=== PATIENT | female | born 1945 | race Caucasian/White ===

== ENCOUNTER 2017-12-26 18:08 | Inpatient (IN) | payer MEDICARE ==
[~2017-12-26] VITALS: Ht 157.5 cm; Wt 79.1 kg
--- NOTE | ~2017-12-26 | OP ---
PATIENT NAME: WES WHITNEY MEDICAL RECORD: [id number] :49 LOCATION:D.M2 D.2116 ADMISSION DATE:12/27/17 SURGEON: ROSALIE FREEDMAN MD DATE OF OPERATION: 12/28/2017 PTCA stent report to LAD. For angiography report, please see report dictated yesterday. DESCRIPTION OF PROCEDURE: After 6-Sinhala sheath placed in left femoral artery, a XB LAD guide catheter provided good guide catheter support followed by 300 cm Whisper wire placed across greater than 90% stenosis in LAD down distal portion of vessel. Pre-deployment balloon used was a 2.5 x 15 mm [place]. Stent deployed was a 2.5 x 30 mm Resolute drug-eluting stent up to 14 atmospheres for 45 seconds. Final injection shows excellent resolution of 90+ percent stenosis, no significant residual. MISAEL flow was 3 throughout the procedure. Heparin was used during the case. Sheath was closed with ExoSeal device. TRANSINT:[id number] Voice Confirmation ID: [id number] DOCUMENT ID: [id number] ROSALIE FREEDMAN MD at 1155 CC: [id number] DICTATION DATE: 12/28/17 1454 BREAKER UP: 12/28/17 1525 DIS IN 12/28/17 [facility] [address] [place] [address]
--- NOTE | ~2017-12-26 | HEMODYNAMI ---
PATIENT:WES WHITNEY MEDICAL RECORD: [id number] : 49 [id number] ADMISSION DATE: 12/26/17 Generatedon:12/27/201710:20 Patient name: WES WHITNEY Patient #: [id number] SSN: : 1945 Date of study: 12/27/2017 Page: Of Hemodynamic Procedure Report Patient Data Patient Demographics Procedure consent was obtained First Name: WES Gender: Female Last Name: CHELO : 1945 Middle Initial: TAMIKO Age: 72 year(s) Patient #: [id number] Race: Unknown Additional ID: [id number] Contact details [address]: [address] [place] [address] State: [place] City: [place] Zip code: [address] Past Medical History Allergies Allergen Reaction Date Comments Reported TA inhibitors 12/27/2017 Admission Admission Data Admission Date: 12/26/2017 Admission Time: 18:08 Room #: D.2116 Lab Results Lab Result Date: 12/27/2017 Lab Result Time: 0:00 Biochemistry Name Units Result Min Max BUN mg/dl 12 --(-*--)-- 7 18 Creatinine mg/dl 1 --(--*-)-- 0.6 1.3 CBC Name Units Result Min Max Hemoglobin g/dl 12.7 -*(----)-- 13.5 17.5 Procedure Procedure Types Cath Procedure Diagnostic Procedure LHC LHC w/Coronaries Sedation Charges Moderate Sedation up to 30 minutes PCI Procedure Coronary Stent Coronary Stent Initial PTCA PTCA Additional Procedure Description Procedure Date Procedure Date: 12/27/2017 Procedure Start Time: 9:45 Procedure End Time: 10:16 Procedure Staff Name Function Kaiser Sheriff MD Performing Physician Azeb Monson RT Scrub Bere Valencia RT Monitor Robinson Castrejon RN Nurse Indication Angina Procedure Data Cath Procedure Fluoroscopy Diagnostic fluoroscopy Total fluoroscopy Time: 7.5 time: 7.5 min min Diagnostic fluoroscopy Total fluoroscopy dose: dose: 1038 mGy 1038 mGy Contrast Material Contrast Material Type Amount (ml) Isovue 300 120 Entry Location Entry Primary Successful Side Size Upsize Upsize Entry Closure Freitas ccessful Closure Location (Fr) 1 (Fr) 2 (Fr) Remarks Device Remarks Radial Right 6 Fr Mechanical artery Short Compression Femoral Right 6 Fr Exoseal artery Short Estimated blood loss: 5 ml Diagnostic catheters Device Type Used For End Catheter Placement DIAGNOSTIC Holton 110cm 5 Multi-vessel Fr catheter ([id number]) Angiography DIAGNOSTIC Pigtail 5Fr LV Angiography catheter ([id number]) Procedure Complications No complications Procedure Medications Medication Administration Route Dosage Plavix P.O. 600 mg Oxygen etCO2 Nasal cannula 2 l/min Heparin Flush Bag added to field 2 bags (1000units/500ml NS) 0.9% NaCl I.V. 100 ml/hr Radial Cocktail added to field 1 syringe (Verapomil 2mg/Nitro 400mcg/Heparin 1500units) Fentanyl I.V. 50 mcg Versed I.V. 1 mg Lopressor I.V. 5 mg Radial Cocktail I.A. 1 syringe (Verapomil 2mg/Nitro 400mcg/Heparin 1500units) Fentanyl I.V. 50 mcg Versed I.V. 1 mg Heparin Bolus I.V. 4000 units Integrilin (Bolus I.V. 6.8 ml 2mg/ml) Integrilin (Bolus wasted 3.2 ml 2mg/ml) Hemodynamics Rest HGB: 12.7 (g/dl) Heart Rate: 112 (bpm) Pressure Samples Time Site Value (mmHg) Purpose Heart Use Rate(bpm) 9:56 LV 137/31,30 Snapshot 96 Gradients Valve Time Site Site Mean SEP/DFP Peak To Heart Use 1 2 (mmHg) (sec/min) Peak Rate (mmHg) (bpm) Aortic 9:56 LV AO 95 Snapshots Pre Cath Intra NCS Post Cath Vital Signs Time Heart Resp SPO2 etCO2 NIBP (mmHg) Rhythm Pain Sedation Rate (ipm) (%) (mmHg) Status Level (bpm) 9:36:06 111 18 98 0 197/100(146) NSR 0 (11) 10(A) , No pain 9:41:05 112 16 100 0 186/100(138) NSR 0 (11) 10(A) , No pain 9:46:00 99 16 100 0 162/87(117) NSR 0 (11) 9(A) , No pain 9:50:51 95 17 97 0 138/78(115) NSR 0 (11) 9(A) , No pain 9:55:37 95 18 99 0 144/73(119) NSR 0 (11) 9(A) , No pain 10:00:24 93 16 97 0 129/76(97) NSR 0 (11) 9(A) , No pain 10:05:09 92 16 96 0 140/75(106) NSR 0 (11) 9(A) , No pain 10:09:54 95 16 97 0 131/84(102) NSR 0 (11) 9(A) , No pain 10:14:34 95 16 99 0 148/87(118) NSR 0 (11) 9(A) , No pain Medications Time Medication Route Dose Verified Delivered Reason Not es Effectiveness by by 9:34:30 Plavix P.O. 600 mg [facility] for [facility] Sony Castrejon RN antiplatelet MD therapy 9:41:03 Oxygen etCO2 2 l/min [facility] Per physician Nasal [facility] Sony Castrejon RN cannula 9:41:12 Heparin Flush added 2 bags [facility] used for Bag to [facility] Sony Castrejon RN procedure (1000units/500ml field LUCIO NS) 9:41:20 0.9% NaCl I.V. 100 [facility] Per physician ml/hr [facility] Sony Castrejon RN, MD 9:41:26 Fentanyl I.V. 50 mcg [facility] for sedation [facility] Sony Castrejon RN, MD 9:41:34 Versed I.V. 1 mg [facility] for sedation [facility] Sony Castrejon RN, MD 9:41:39 Radial Cocktail added 1 [facility] used for (Verapomil to syringe [facility] Sony Castrejon helicopter pilot 2mg/Nitro field LUCIO 400mcg/Heparin 1500units) 9:47:02 Lopressor I.V. 5 mg [facility] Per physician [facility] Sony Castrejon RN, MD 9:49:26 Radial Cocktail I.A. 1 [facility] for (Verapomil syringe St Sony Sheriff vasodilation 2mg/Julia LUCIO MD 400mcg/Heparin 1500units) 9:49:33 Fentanyl I.V. 50 mcg [facility] for sedation [facility] Sony Castrejon RN, MD 9:49:37 Versed I.V. 1 mg [facility] for sedation [facility] Sony Castrjeon RN, MD 9:57:33 Heparin Bolus I.V. 4000 [facility] for units [facility] Sony Castrejon RN anticoagulation 9:57:58 Integrilin I.V. 6.8 ml [facility] for (Bolus 2mg/ml) [facility] Sony Castrejon RN antiplatelet MD therapy 10:01:20 Integrilin wasted 3.2 ml [facility] for (Bolus 2mg/ml) [facility] Sony Castrejon RN antiplatelet MD therapy Procedure Log Time Note 9::20 Time tracking: Regular hours 9:05:24 Plan of Care:Hemodynamics will remain stable., Cardiac rhythm will remain stable., Comfort level will be maintained., Respiratory function will remain adequate., Patient/ family verbilizes understanding of procedure., Procedure tolerated without complication., Recovers from procedure without complications.. 9:05:26 Signed procedure consent form obtained from patient. 9:08:23 Patient allergic to TA inhibitors 9:08:45 Lab Result : BUN 12 mg/dl 9:08:45 Lab Result : Creatinine 1 mg/dl 9:08:45 Lab Result : Hemoglobin 12.7 g/dl 9:10:51 Azeb Monson RT(R) sent for patient. Start room use. 9:33:29 Patient received from Med II to CCL 1 Alert and oriented. Tansferred to table in Supine position. 9:33:31 Warm blankets applied, and will hugger turned on for patient comfort. 9:33:32 Correct patient and procedure confirmed by team. 9:33:33 ECG and BP/O2 sat monitors applied to patient. 9:34:04 Vital chart was started 9:34:30 Plavix 600 mg P.O. was administered by Robinson Castrejon RN; for antiplatelet therapy; 9:36:05 Baseline sample Acquired. 9:36:12 Rhythm: sinus tachycardia 9:36:16 Full Disclosure recording started 9:36:46 H&P Date Dictated: 12/27/2017 Within 30 days and on chart., New H&P dictated by physician.. 9:36:49 Pre-procedure instructions explained to patient. 9:36:50 Pre-op teaching completed and patient verbalized understanding. 9:36:58 Family in patients room. 9:37:04 Patient NPO since Midnight. 9:37:15 Is the patient allergic to Iodine/contrast media? No. 9:37:28 Is patient on blood thinner?Yes 9:37:33 ACC The patient was administered the following blood thiners within the last 24 hours: ACCPlavix 9:37:36 Patient diabetic? Yes. 9:37:50 If diabetic: On Metformin? Yes 9:38:15 LAST DOSE 12/25/17 9:38:32 ----Pre-sedation anethsthesia assessment.---- 9:38:36 Previous problem with sedation/anesthesia? No ? 9:38:38 Snore? Yes 9:38:39 Sleep apnea? No 9:38:41 Deviated septum? No 9:38:42 Opens mouth fully? Yes 9:38:44 Sticks out tongue? Yes 9:39:06 Airway obstruction? No ? 9:39:15 Dentures? Yes OUT 9:39:22 Pre procedure: right dorsailis pedis pulse 2+ Normal; easily identifiable; not easily obliterated 9:39:36 Patient pain scale 0/10 ?. 9:40:02 IV patent on arrival in left wrist with 0.9% NaCl at KVO. 9:40:23 Lab results completed and on chart. 9:40:28 Right Radial & Right Groin area was prepped with chlora-prep and draped in sterile fashion 9:40:29 Alarms reviewed by R. N. 9:40:31 Sharps counted by scrub and verified by R.N. 9:40:34 Physician arrived 9:40:34 --------ALL STOP TIME OUT------ 9:40:35 Final Timeout: patient, procedure, and site verified with staff and physician. All members of the team are in agreement. 9:40:38 Right Radial & Right Groin site verified by team. 9:40:41 Physical assessment completed. ASA score P 2 - A patient with mild systemic disease as per Kaiser Sheriff MD. 9:40:46 Sedation plan: IV Moderate Sedation Medication:Versed, Fentanyl 9:41:02 Indication : Angina 9:41:03 Oxygen 2 l/min etCO2 Nasal cannula was administered by Robinson Castrejon RN; Per physician; 9:41:09 Use device set Radial Dx or PCI 9:41:10 ACIST Syringe (19829) opened to sterile field. 9:41:10 Medline Cath Pack ([id number]) opened to sterile field. 9:41:11 Bag Decanter () opened to sterile field. 9:41:12 Heparin Flush Bag (1000units/500ml NS) 2 bags added to field was administered by Robinson Castrejon RN; used for procedure; 9:41:12 DIAGNOSTIC WIRE .035 260cm J wire (948160) opened to sterile field. 9:41:13 ACIST Hand Control (26452) opened to sterile field. 9:41:14 ACIST Manifold (56042) opened to sterile field. 9:41:14 Tegaderm 4 x 4 (1626W) opened to sterile field. 9:41:15 MBrace Wrist Support ([id number]) opened to sterile field. 9:41:20 0.9% NaCl 100 ml/hr I.V. was administered by Robinson Castrejon RN; Per physician; 9:41:26 Fentanyl 50 mcg I.V. was administered by Robinson Castrejon RN; for sedation; 9:41:34 Versed 1 mg I.V. was administered by Robinson Castrejon RN; for sedation; 9:41:35 SHEATH 6Fr Prelude Radial ([id number]) opened to sterile field. 9:41:39 Radial Cocktail (Verapomil 2mg/Nitro 400mcg/Heparin 1500units) 1 syringe added to field was administered by Robinson Castrejon RN; used for procedure; 9:45:11 Procedure started. 9:45:16 Local anesthetic to right radial artery with Lidocaine 2% by Kaiser Sheriff MD.INITIAL ACCESS ONLY 9:45:26 A 6 Fr Short sheath was inserted into the Right Radial artery 9:45:43 A DIAGNOSTIC Holton 110cm 5 Fr catheter (231255) was advanced over the wire and used for Multi-vessel Angiography. 9:47:02 Lopressor 5 mg I.V. was administered by Robinson Castrejon RN; Per physician; 9:47:54 RCA angiography performed. 9:48:14 LCA angiography performed. 9:49:26 Radial Cocktail (Verapomil 2mg/Nitro 400mcg/Heparin 1500units) 1 syringe I.A. was administered by Kaiser Sheriff MD; for vasodilation; 9:49:33 Fentanyl 50 mcg I.V. was administered by Robinson Castrejon RN; for sedation; 9:49:37 Versed 1 mg I.V. was administered by Robinson Castrejon RN; for sedation; 9:51:33 Catheter removed. 9:53:12 Proceeding to intervention. 9:53:16 Local anesthetic to right femoral artery with Lidocaine 2% by Kaiser Sheriff MD.ADDITIONAL ACCESS 9:53:25 A 6 Fr Short sheath was inserted into the Right Femoral artery 9:53:54 BMW 300cm [place] 2 J wire ([id number]) opened to sterile field. 9:54:10 INFLATOR Merit BasixCompak (TL4810) opened to sterile field. 9:55:08 A DIAGNOSTIC Pigtail 5Fr catheter (571261I) was advanced over the wire and used for LV Angiography. 9:56:07 LV hemodynamics recorded. 9:56:08 LV gram done using MCKEON 9:56:10 Injector settings: Ml/sec: 5, Volume: 15, 9:56:21 EF : 55 % 9:56:26 Catheter removed. 9:56:43 GUIDE 6FR EBU 3.5 catheter ([id number]) opened to sterile field. 9:56:53 6 Fr EBU 3.5 guide catheter was inserted over the wire 9:56:57 BMW wire advanced. 9:57:33 Heparin Bolus 4000 units I.V. was administered by Robinson Castrejon RN; for anticoagulation; 9:57:58 Integrilin (Bolus 2mg/ml) 6.8 ml I.V. was administered by Robinson Castrejon RN; for antiplatelet therapy; 10:01:20 Integrilin (Bolus 2mg/ml) 3.2 ml wasted was administered by Robinson Castrejon RN; for antiplatelet therapy; 10:02:12 Inflation number: 1 A EUPHORA 3.0 x 15 Balloon ([id number]) was prepped and advanced across the Mid CX, then inflated to 10 AMY for 0:30 (min:sec). 10:03:32 Balloon removed over the wire. 10:05:36 Inflation Number: 2 A RADHA OTW 3.0 x 15 stent ([id number]) was prepped and advanced across the Mid CX. The stent was deployed at 14 AMY for 0:30 (min:sec). 10:08:15 Stent catheter was removed intact over wire. 10:10:56 Inflation number: 1 A EUPHORA 2.5 x 20 Balloon ([id number]) was prepped and advanced across the 1st Ob Doreen, then inflated to 10 AMY for 0:30 (min:sec). 10:11:42 Inflation number: 2 The EUPHORA 2.5 x 20 Balloon ([id number]) was reinflated across the 1st Ob Doreen, to 10 AMY for 0:30 (min:sec). 10:12:01 Balloon removed over the wire. 10:12:02 Wire removed. 10:12:03 Guide catheter removed. 10:12:06 TR BAND Standard ([id number]) opened to sterile field. 10:12:16 EXOSEAL 6Fr (EX600) opened to sterile field. 10:12:31 Sheath removed intact; hemostasis achieved with Mechanical Compression to the Right Radial artery. 10:12:37 Sheath removed intact; hemostasis achieved with Exoseal to the Right Femoral artery. 10:12:40 Procedure ended.(Physican Out) 10:13:24 Fluoroscopy time 07.50 minutes. 10:13:29 Fluoroscopy dose: 1038 mGy 10:13:29 Flurop Dose total: 1038 10:14:39 Contrast amount:Isovue 300 120ml. 10:14:42 Sharps counted by scrub and verified by R.N. 10:14:44 TR band inflated with 10cc of air. 10:14:46 Insertion/operative site no bleeding no hematoma. 10:14:55 Post-op/insertion site Right Femoral artery dressed using a 4 x 4 and Tegaderm. 10:15:00 Post right radial artery:stable 10:15:01 Post Procedure Pulses reassessed and unchanged 10:15:04 Post procedure rhythm: unchanged. 10:15:07 Estimated blood loss: 5 ml 10:15:09 Post procedure instruction explained to patient.Patient verbalizes understanding. 10:15:10 Patient needs reinforcement of post procedure teaching. 10:15:56 Procedure type changed to Cath procedure, Diagnostic procedure, LHC, LHC w/Coronaries, Sedation Charges, Moderate Sedation up to 30 minutes, PCI procedure, Coronary Stent, Coronary Stent Initial, PTCA, PTCA Additional 10:15:57 Procedure and supply charges have been captured, reviewed, submitted and are correct. 10:16:01 Procedure Complication : No complications 10:16:03 Vital chart was stopped 10:16:04 See physician's report for complete and final results. 10:16:[address] [facility]. 10:16:26 Patient transfered to [facility] with Stretcher. 10:16:28 Procedure ended. 10:16:28 Full Disclosure recording stopped 10:16:35 ACC-PCI Only Patient was given prescriptions, or instructed by Kaiser Sheriff MD to start/continue the following medications upon discharge: Plavix 10:16:36 End room use (Document Last) Intervention Summary Intervention Notes Time ActionType Lesion and Equipment Action# Pressure Duration Attributes Used 10:02:12 Inflate Mid CX EUPHORA 3.0 x 1 10 00:30 balloon 15 Balloon ([id number]) 10:05:36 Place stent Mid CX RADHA OTW 3.0 2 14 00:30 x 15 stent ([id number]) 10:10:56 Inflate 1st Ob Doreen EUPHORA 2.5 x 1 10 00:30 balloon 20 Balloon ([id number]) 10:11:42 Reinflate 1st Ob Doreen EUPHORA 2.5 x 2 10 00:30 balloon 20 Balloon ([id number]) Device Usage Item Name Manufacture Quantity Catalog Number Hospital Part Current M inimal Lot# / Charge Number Stock Stock Serial# Code ACIST Syringe Acist 1 54075 989506 738361 408152 2 0 (30320) Medical [employer] Inc Medline Cath Cardinal 1 [id number] 886906 34114 863288 5 Pack [facility] ([id number]) Bag Decanter Microtek 1 677782 42984 415307 5 () Medical Inc. DIAGNOSTIC WIRE St Andrey 1 672563 238215 170947 115042 3 0 .035 260cm J wire (694548) ACIST Hand Acist 1 56582 117401 840952 033181 5 Control (37728) [employer] Inc ACIST Manifold Acist 1 29850 569239 748984 747115 5 (95345) [employer] Systems Inc Tegaderm 4 x 4 3M 1 1626W 330383 989629 921723 5 (1626W) MBrace Wrist Advanced 1 140-0250-00 991983 68470 382253 5 Support Vascular ([id number]) Dynamics SHEATH 6Fr Merit 1 [id number] 176153 153514 508527 5 Prelude Radial Medical ([id number]) DIAGNOSTIC Terumo 1 40-5423 401169 291261 279298 5 Holton 110cm 5 Fr catheter (577815) BMW 300cm Flynn 1 [id number] 640903 498562 088684 5 [place] 2 J Vascular wire (0444210F) INFLATOR Merit Merit 1 YJ1766 552074 702607 313807 1 5 [facility] (RZ[facility]82) DIAGNOSTIC Cardinal 1 [id number] 914301 719526 845138 5 Pigtail 5Fr Health catheter (240063O) GUIDE 6FR EBU Medtronic 1 [id number] 132982 34237 704021 3 3.5 catheter (JV3VTC88) EUPHORA 3.0 x Medtronic 1 [id number] 427351 547115 372188 5 [id number] 15 Balloon ([id number]) RADHA OTW 3.0 x Medtronic 1 [id number] 384015 945102 989354 5 [id number] 15 stent ([id number]) EUPHORA 2.5 x Medtronic 1 [id number] 420432 078117 996429 5 [id number] 20 Balloon ([id number]) TR BAND Terumo 1 [id number] 411867 314512 828499 4 0 Standard ([id number]) EXOSEAL 6Fr Cardinal 1 EX600 408609 766709 463829 1 0 (EX600) Health Signature Audit [place] Stage Time Signature Unsigned Intra-Procedure 12/27/2017 Bere Valencia 10:20:48 AM RT(R) Signatures Monitor : Bere Valencia RT Signature : Date : Time : [facility] [address] [facility] [place] [address]
--- NOTE | ~2017-12-26 | OP ---
PATIENT NAME: WES WHITNEY MEDICAL RECORD: [id number] :49 LOCATION:D.M2 D.2116 ADMISSION DATE:12/27/17 SURGEON: ROSALIE FREEDMAN MD DATE OF OPERATION: 12/27/2017 PROCEDURE: Left heart catheterization, selective coronary angiography, right radial approach. CATHETERS: A 5-Nepalese sheath, 5/4 left and right Duane, 5/4 pig. The procedure was well tolerated. We proceeded immediately to PTCA stenting of circumflex. FINDINGS: Left ventriculography in 30-degree MCKEON view shows inferior basilar hypokinesis. Overall, LV function appears to be preserved at 50% or better. CORONARY ANATOMY: LEFT MAIN: Left main has about 30% stenosis. LAD: Has a long diffuse stenosis of 80%. CIRCUMFLEX: Circumflex has severe diffuse disease of the distal PDA. It is a left dominant system. There is a larger OM2 distally and OM1 that has severe diffuse stenosis. PLAN: Intervention in a staged fashion of the circumflex, OM systems, and LAD. After we placed a 6-Nepalese sheath in the right femoral artery, EBU guide catheter provided good guide catheter support followed by 300 cm Whisper wire. We addressed the circumflex OM2 initially. Pre-deployment balloon was a 3.0 x 15 mm [place] up to 12 atmospheres. Next, a 3.0 x 15 Resolute drug-eluting stent was inflated up to 14 atmospheres. Next, the smaller OM1 with diffuse disease was addressed with a 2.5 x 20 mm [place] balloon up to 12 atmospheres. It shows excellent resolution of diffuse 80% stenosis in OM1, excellent resolution of 90+ subtotal stenosis in OM2/true circ. No significant residual. MISAEL flow was 3 throughout the procedure. Plavix was loaded in the lab. Intervention of LAD at a later date. TRANSINT:[id number] Voice Confirmation ID: [id number] DOCUMENT ID: [id number] ROSALIE FREEDMAN MD at 1155 CC: [id number] DICTATION DATE: 12/27/17 1019 BUSINESS SERVICES REPRESENTATIVE: 12/27/17 1218 DIS IN 12/28/17 [place] [address]
--- NOTE | ~2017-12-26 | HEMODYNAMI ---
PATIENT:WES WHITNEY MEDICAL RECORD: [id number] : 49 [id number] ADMISSION DATE: 12/27/17 Generatedon:12/28/201714:48 Patient name: WES WHITNEY Patient #: [id number] SSN: : 1945 Date of study: 12/28/2017 Page: Of Hemodynamic Procedure Report Patient Data Patient Demographics Procedure consent was obtained First Name: WES Gender: Female Last Name: CHELO : 1945 Middle Initial: TAMIKO Age: 72 year(s) Patient #: [id number] Race: Unknown Additional ID: [id number] Contact details [address]: [address] [place] [address] State: [place] City: [place] Zip code: [address] Past Medical History Allergies Allergen Reaction Date Comments Reported TA inhibitors 12/27/2017 Admission Admission Data Admission Date: 12/27/2017 Admission Time: 14:56 Room #: D2116 Lab Results Lab Result Date: 12/27/2017 Lab Result Time: 0:00 Biochemistry Name Units Result Min Max BUN mg/dl 12 --(-*--)-- 7 18 Creatinine mg/dl 1 --(--*-)-- 0.6 1.3 CBC Name Units Result Min Max Hemoglobin g/dl 12.7 -*(----)-- 13.5 17.5 Procedure Procedure Types Cath Procedure Diagnostic Procedure Sedation Charges Moderate Sedation up to 15 minutes PCI Procedure Coronary Stent Coronary Stent Initial Procedure Description Procedure Date Procedure Date: 12/28/2017 Procedure Start Time: 14:27 Procedure End Time: 14:47 Procedure Staff Name Function Kaiser Sheriff MD Performing Physician Lyssa Lewis RT Monitor Stepan Roque RT Scrub Laisha Falk RN Nurse Procedure Data Cath Procedure Fluoroscopy Diagnostic fluoroscopy Total fluoroscopy Time: 5.1 time: 5.1 min min Diagnostic fluoroscopy Total fluoroscopy dose: dose: 419.62 mGy 419.62 mGy Contrast Material Contrast Material Type Amount (ml) Isovue 300 79 Entry Location Entry Primary Successful Side Size Upsize Upsize Entry Closure Succes sful Closure Location (Fr) 1 (Fr) 2 (Fr) Remarks Device Remarks Femoral Left 6 Fr Exoseal artery Short Estimated blood loss: 10 ml Procedure Complications No complications Procedure Medications Medication Administration Route Dosage Oxygen NC 2 l/min Heparin Bolus I.V. 4000 units Lidocaine 2% added to field 20 Heparin Flush Bag added to field 2 bags (1000units/500ml NS) Versed I.V. 1 mg Fentanyl I.V. 50 mcg Versed I.V. 1 mg Fentanyl I.V. 50 mcg Hemodynamics Rest Heart Rate: 88 (bpm) Snapshots Pre Cath Intra NCS Post Cath Vital Signs Time Heart Resp SPO2 NIBP (mmHg) Rhythm Pain Sedation Rate (ipm) (%) Status Level (bpm) 14:13:59 89 16 98 176/82(112) NSR 0 (11) 10(A) , No pain 14:18:37 87 12 98 148/80(104) NSR 0 (11) 10(A) , No pain 14:23:18 88 15 99 141/70(105) NSR 0 (11) 10(A) , No pain 14:27:55 90 18 100 136/71(97) NSR 0 (11) 9(A) , No pain 14:32:31 94 17 99 130/69(100) NSR 0 (11) 9(A) , No pain 14:37:01 100 14 99 142/77(98) NSR 0 (11) 9(A) , No pain 14:41:34 103 15 99 151/84(112) NSR 0 (11) 9(A) , No pain 14:46:16 96 17 99 160/69(113) NSR 0 (11) 10(A) , No pain Medications Time Medication Route Dose Verified Delivered Reason Notes Effectiveness by by 14:14:14 Lidocaine 2% added 20ml Kaiser Saab for local to vial [facility] anesthetic field MD LUCIO 14:14:20 Heparin Flush added 2 Kaiser aSab used for Bag to bags [facility] John procedure (1000units/500ml field MD LUCIO NS) 14:14:54 Oxygen NC 2 Robinson Bowers used for l/min aCsh Castrejon industrial maintenance electrician RN 14:20:27 Versed I.V. 1 mg Kaiser Interiano for sedation St Sony Falk RN, MD 14:20:33 Fentanyl I.V. 50 Kaiser Adhikariie for sedation [facility] Sony Falk RN, MD 14:29:57 Heparin Bolus I.V. 4000 Robinson Robinson for verifi ed units Cash Castrejon RN anticoagulation with STEFANI quach 14:30:37 Versed I.V. 1 mg Kaiser Adhikariie for sedation St Sony Falk RN, MD 14:30:41 Fentanyl I.V. 50 Kaiser Interiano for sedation [facility] St Sony Falk RN, MD Procedure Log Time Note 13:48:10 Time tracking: Regular hours 13:48:30 Plan of Care:Hemodynamics will remain stable., Cardiac rhythm will remain stable., Comfort level will be maintained., Respiratory function will remain adequate., Patient/ family verbilizes understanding of procedure., Procedure tolerated without complication., Recovers from procedure without complications.. 13:48:50 Use device set CATH PACK 13:48:51 ACIST Syringe (05421) opened to sterile field. 13:48:52 ACIST Hand Control (58775) opened to sterile field. 13:48:52 ACIST Manifold (05862) opened to sterile field. 13:48:53 Medline Cath Pack ([id number]) opened to sterile field. 13:48:53 Bag Decanter (2002S) opened to sterile field. 13:48:54 DIAGNOSTIC WIRE .035 260cm J wire (783955) opened to sterile field. 13:49:00 PERCUTANEOUS ENTRY 19GA needle opened to sterile field. 13:49:04 Use device set MCNEAL PCI 13:49:05 INFLATOR Merit BasixCompak (OX4485) opened to sterile field. 13:49:19 SHEATH Prelude 6Fr 0.035 (QUZ-6K-97-035) opened to sterile field. 13:49:21 WHISPER 300cm guide wire ([id number]) opened to sterile field. 13:49:23 GUIDE 6FR XBLAD 3.5 catheter ([id number]) opened to sterile field. 13:49:32 Lyssa Lewis RT(R) sent for patient. Start room use. 14:09:00 Patient received from PCU to CCL 3 Alert and oriented. Tansferred to table in Supine position. 14:09:01 Warm blankets applied, and will hugger turned on for patient comfort. 14:09:02 Correct patient and procedure confirmed by team. 14:09:04 Signed procedure consent form obtained from patient. 14:09:04 ECG and BP/O2 sat monitors applied to patient. 14:09:30 H&P Date Dictated: 12/27/2017 Within 30 days and on chart.. 14:12:21 Vital chart was started 14:12:24 Rhythm: sinus rhythm 14:12:25 Full Disclosure recording started 14::26 Pre-procedure instructions explained to patient. 14:12: Pre-op teaching completed and patient verbalized understanding. 14:12:28 Family in patients room. 14:12:29 Patient NPO since Midnight. 14:12:41 Is the patient allergic to Iodine/contrast media? No. 14:12:43 Is patient on blood thinner?Yes 14:12:44 ACC The patient was administered the following blood thiners within the last 24 hours: ACCPlavix 14:12:52 Patient diabetic? Yes. 14:12:53 If diabetic: On Metformin? No 14:12:56 Previous problem with sedation/anesthesia? No ? 14:12:57 Snore? Yes 14:12:58 Sleep apnea? No 14:13:01 Deviated septum? No 14:13:02 Opens mouth fully? Yes 14:13:02 Sticks out tongue? Yes 14:13:04 Airway obstruction? No ? 14:13:06 Dentures? No ? 14:13:12 Pre procedure: left dorsailis pedis pulse 2+ Normal; easily identifiable; not easily obliterated 14:13:19 Patient pain scale 0/10 ?. 14:13:29 IV patent on arrival in right forearm with 0.9% NaCl at O. 14:13:32 Lab results completed and on chart. 14:13:36 Left groin area was prepped with chlora-prep and draped in sterile fashion 14:13:36 Alarms reviewed by R. N. 14:13:36 Sharps counted by scrub and verified by R.N. 14:14:14 Lidocaine 2% 20ml vial added to field was administered by Kaiser Sheriff MD; for local anesthetic; 14:14:20 Heparin Flush Bag (1000units/500ml NS) 2 bags added to field was administered by Kaiser Sheriff MD; used for procedure; 14:14:54 Oxygen 2 l/min NC was administered by Robinson Castrejon RN; used for procedure; 14:18:24 Baseline sample Acquired. 14:18:55 Final Timeout: patient, procedure, and site verified with staff and physician. All members of the team are in agreement. 14:18:59 Left groin site verified by team. 14:19:02 Physical assessment completed. ASA score P 2 - A patient with mild systemic disease as per Kaiser Sheriff MD. 14:19:05 Sedation plan: IV Moderate Sedation Medication:Versed, Fentanyl 14:20:27 Versed 1 mg I.V. was administered by Laisha Falk RN; for sedation; 14:20:33 Fentanyl 50 mcg I.V. was administered by Laisha Falk RN; for sedation; 14:25:39 Zero performed for pressure channel P1 14:26:56 Procedure started. 14:27:00 Local anesthetic to left femerol artery with Lidocaine 2% by Kaiser Sheriff MD.INITIAL ACCESS ONLY 14:27:47 A 6 Fr Short sheath was inserted into the Left Femoral artery 14:29:13 6 Fr XBLAD 3.5 guide catheter was inserted over the wire 14:29:57 Heparin Bolus 4000 units I.V. was administered by Robinson Castrejon RN; for anticoagulation; verified with philomena 14:30:37 Versed 1 mg I.V. was administered by Laisha Falk RN; for sedation; 14:30:41 Fentanyl 50 mcg I.V. was administered by Laisha Falk RN; for sedation; 14:34:26 WHISPER wire advanced. 14:36:10 Inflation number: 1 A EMERGE OTW 2.5 x 15 balloon ([id number]) was prepped and advanced across the Mid LAD, then inflated to 10 AMY for 0:29 (min:sec). 14:38:23 Stent catheter was removed intact over wire. 14:42:15 Inflation Number: 2 A RADHA OTW 2.5 x 30 stent ([id number]) was prepped and advanced across the Mid LAD. The stent was deployed at 14 AMY for 0:27 (min:sec). 14:42:30 Stent catheter was removed intact over wire. 14:42:49 Wire removed. 14:42:49 Guide catheter removed. 14:43:00 Sheath removed intact; hemostasis achieved with Exoseal to the Left Femoral artery. 14:43:03 Procedure ended.(Physican Out) 14:43:36 Procedure type changed to Cath procedure, Diagnostic procedure, Sedation Charges, Moderate Sedation up to 15 minutes, PCI procedure, Coronary Stent, Coronary Stent Initial 14:44:37 Fluoroscopy time 05.10 minutes. 14:44:45 Flurop Dose total: 419.62 14:44:45 Fluoroscopy dose: 419.62 mGy 14:44:48 Contrast amount:Isovue 300 79ml. 14:44:49 Sharps counted by scrub and verified by R.N. 14:44:51 Insertion/operative site no bleeding no hematoma. 14:44:54 Post-op/insertion site Left Femoral artery dressed using a 4 x 4 and Tegaderm. 14:44:58 Post left femerol artery:stable, clean and dry 14:45:00 Post Procedure Pulses reassessed and unchanged 14:45:02 Post-procedure physical assessment completed. ASA score P 2 - A patient with mild systemic disease as per Kaiser Sheriff MD. 14:45:06 Post procedure rhythm: unchanged. 14:45:12 Estimated blood loss: 10 ml 14:45:13 Post procedure instruction explained to patient.Patient verbalizes understanding. 14:45:14 Patient needs reinforcement of post procedure teaching. 14:45:18 Procedure Complication : No complications 14:45:20 See physician's report for complete and final results. 14:45:34 EXOSEAL 6Fr (EX600) opened to sterile field. 14:46:04 Tegaderm 4 x 4 (1626W) opened to sterile field. 14:46:30 Procedure and supply charges have been captured, reviewed, submitted and are correct. 14:47:11 Vital chart was stopped 14:47:20 Report given to PCU. 14:47:28 Patient transfered to PCU with Bed. 14:47:39 Procedure ended. 14:47:39 Full Disclosure recording stopped 14:47:45 End room use (Document Last) Intervention Summary Intervention Notes Time ActionType Lesion and Equipment Action# Pressure Duration Attributes Used 14:36:10 Inflate Mid LAD EMERGE OTW 1 10 00:29 balloon 2.5 x 15 balloon ([id number]) 14:42:15 Place stent Mid LAD RADHA OTW 2.5 2 14 00:27 x 30 stent ([id number]) Device Usage Item Name Manufacture Quantity Catalog Number Hospital Part Current Minimal Lot# / Charge Number Stock Stock Serial# Code ACIST Syringe Acist 1 27487 722862 433823 122301 20 (40224) Medical [employer] Inc ACIST Hand Acist 1 03906 942139 049915 786406 5 Control (36659) [employer] Inc ACIST Manifold Acist 1 86477 801999 046833 146802 5 (26819) Medical [employer] Inc Medline Cath Cardinal 1 [id number] 388736 42279 820070 5 Pack Health ([id number]) Bag Decanter Microtek 1 2001S 202782 80607 617189 5 (2001S) Medical Inc. DIAGNOSTIC WIRE St Andrey 1 122593 908708 157962 279945 30 .035 260cm J wire (908699) PERCUTANEOUS Cook Medical 1 X07206 749509 195790 5 ENTRY 19GA needle INFLATOR Merit Merit 1 RV5353 658976 388951 251973 15 BasixCompak Medical (YT5239) SHEATH Prelude Merit 1 BYD-4A-03-35 562595 2856495 062361 5 6Fr 0.035 Medical (JSH-2C-61-035) WHISPER 300cm Flynn 1 [id number] 495646 241149 355602 5 guide wire Vascular (1935582NC) GUIDE 6FR XBLAD Cardinal 1 [id number] 260650 648959 376799 10 3.5 catheter Health ([id number]) EMERGE OTW 2.5 Peck 1 [id number] 808500 796610 790569 5 [id number] x 15 balloon Scientific ([id number]) RADHA OTW 2.5 x Medtronic 1 [id number] 814660 55937 172259 5 [id number] 30 stent ([id number]) EXOSEAL 6Fr Cardinal 1 EX600 198010 109373 851113 10 (EX600) Health Tegaderm 4 x 4 3M 1 1626W 112973 613917 593896 5 (1626W) Signature Audit Delphi Stage Time Signature Unsigned Intra-Procedure 12/28/2017 Lyssa 2:47:55 PM Counts RT(R) Signatures Monitor : Lyssa Signature : Counts RT Date : Time : [address] [place] [address]
--- NOTE | ~2017-12-26 | CN ---
PATIENT NAME:WES WHITNEY MEDICAL RECORD: [id number] : 49 LOCATION:D. D.2116 ADMIT DATE: 12/27/17 ACCOUNT: [id number] CONSULTING PHYSICIAN: ROSALIE FREEDMAN MD REFERRING PHYSICIAN: ARACELI JACKSON MD DATE OF CONSULTATION: 12/27/2017 HISTORY OF PRESENT ILLNESS: A 72-year-old female with a history of hypertension, diabetes mellitus, about a 3-4 week history of progressive dyspnea on exertion, chest tightness and pressure, presented to the Emergency Room, found to have elevated cardiac enzymes, non-specific ST-T changes inferolaterally on ECG, admitted for a non-ST elevation myocardial infarction. PAST MEDICAL HISTORY: Includes: 1. History of hypertension. 2. Hyperlipidemia. 3. Diabetes mellitus. ALLERGIES: TA INHIBITOR causes cough. MEDICATIONS: Include losartan 50 every day, lovastatin 40 every day, insulin per scale, Glucophage 500 b.i.d. SOCIAL HISTORY: , lives in the [facility]. She is nonsmoker, nondrinker. Easily takes all of her ADLs. Works in the yard, etc. REVIEW OF SYSTEMS: The patient reports easy bruising but reports no swollen glands. The patient reports no fever, no night sweats, no significant weight gain, no significant weight loss. No significant exercise tolerance. The patient reports no dry eyes, no irritation, no vision change. Patient reports no difficulty hearing and no ear pain. Patient reports no frequent nose bleeds or nose and sinus problems. Patient reports on arm pain on exertion. No shortness of breath while lying down. No history of heart murmur. Patient reports no cough, no wheezing or coughing up blood. Patient reports no abdominal pain, no vomiting. Normal appetite. No diarrhea and not vomiting blood. No nausea and no constipation. Patient reports no incontinence. No difficulty urinating. No hematuria. No increased frequency. Patient reports no muscle aches. No weakness, no arthralgias, no back pain. No swelling of the extremities. Patient reports no abnormal mole, no jaundice, no rashes. Reports no loss of consciousness. No weakness and no numbness. No seizures, dizziness, or headaches. The patient reports no depression, no sleep disturbance, feeling safe in a relationship and no alcohol abuse. Patient reports on fatigue. Reports no runny nose or sinus pressure. No itching, no hives, and no frequent sneezing. PHYSICAL EXAMINATION: GENERAL: Pleasant female in no acute distress. VITAL SIGNS: Blood pressure 129/62, pulse 51 regular. HEENT: Normocephalic, atraumatic. NECK: No JVD or bruit. HEART: Regular. II/ ejection murmur. LUNGS: Good air excursion. ABDOMEN: Soft, nontender. EXTREMITIES: Pulses 2+ with no edema. CONSULT REPORT [id number] WES WHITNEY DIAGNOSTIC DATA: ECG with diagnostic ST-T changes inferolaterally. IMPRESSION: Non-ST elevation myocardial infarction. PLAN: For angiography, intervention based on above. TRANSINT:[id number] Voice Confirmation ID: [id number] DOCUMENT ID: [id number] ROSLAIE FREEDMAN MD at 1155 CC: [id number] DICTATION DATE: 12/27/17 0756 MARINE FIRER: 12/27/17 1121 DIS IN 12/28/17 [id number] [place] [address]
[2017-12-26] MEDS ORDERED: LOVASTATIN40 MG PO (19:01)
[2017-12-26] MEDS ORDERED: COZAAR50 MG PO (19:01)
[2017-12-26] MEDS ORDERED: XALATAN 0.0052.5 ML EACH EYE (19:01)
[2017-12-26] MEDS ORDERED: GLUCOPHAGE500 MG PO (19:02)
[2017-12-26] MEDS ORDERED: HUMULIN N100 U/ML SC ×2 (19:02→19:03)
[2017-12-26] MEDS ORDERED: HUMULIN R100 U/ML SC ×2 (19:12→19:14)
[2017-12-26 20:30] VITALS: BP 158/70; Ht 157.5 cm; Wt 79.1 kg
[2017-12-26 21:25] VITALS: BP 136/58
[2017-12-26 23:09] LABS: CKMB 4.9 U/L (0.0-3.6); CREATINE KINASE 255 UL (21-215)
[2017-12-26 23:10] LABS: TROPONIN-I 0.169 ng/mL (0.000-0.060)
[2017-12-27 00:35] VITALS: BP 123/49
[2017-12-27 04:25] LABS: CKMB 4.6 U/L (0.0-3.6); CREATINE KINASE 224 UL (21-215)
[2017-12-27 04:26] LABS: TROPONIN-I 0.261 ng/mL (0.000-0.060)
[2017-12-27 05:41] VITALS: BP 129/62
[2017-12-27 08:11] LABS: BASOPHILS 0.7 % (0-2); EOSINOPHILS 1.9 % (0-7); HEMATOCRIT 39.1 % (36.0-48.0); HEMOGLOBIN 12.7 g/dL (12-16); IMMATURE GRANULOCYTES 0.2 % (0-5); LYMPHOCYTES 37.8 % (15-50); MCH 28.2 pg (26.0-34.0); MCHC 32.5 g/dL (31.0-37.0); MCV 86.7 fL (80.0-100.0); MEAN PLATELET VOLUME 9.7 fL (7.4-10.4); MONOCYTES 8.2 % (2-11); NEUTROPHILS 51.2 % (40-80); PLATELET COUNT 259 10x3/uL (130-400); RBC 4.51 10x6/uL (4.00-5.40); RDW 12.7 % (11.5-14.5); WBC 8.9 10x3/uL (4.8-10.8)
[2017-12-27 08:39] VITALS: BP 129/52
[2017-12-27 08:42] LABS: CALC OSMOLALITY 290 mosm/kg (275-300); CALCIUM 9.4 mg/dL (8.5-10.1); CARBON DIOXIDE 28.2 mmol/L (21.0-32.0); CHLORIDE - SERUM 106 mmol/L (98-107); CKMB 4.1 U/L (0.0-3.6); CREATINE KINASE 191 UL (21-215); GLUCOSE 211 mg/dL (74-106); POTASSIUM - SERUM 4.6 mmol/L (3.5-5.1); SODIUM 143 mmol/L (136-145); UREA NITROGEN 12 mg/dL (7-18); eGFR NON AFRICAN AMERICAN 58 mL/min (90-120)
[2017-12-27 08:44] LABS: TROPONIN-I 0.148 ng/mL (0.000-0.060)
[2017-12-27 12:16] VITALS: BP 115/64
[2017-12-27 16:55] VITALS: BP 122/68
[2017-12-27 19:00] VITALS: BP 134/53
[2017-12-28 04:00] VITALS: BP 130/70
[2017-12-28 09:07] VITALS: BP 138/69
[2017-12-28 12:15] VITALS: BP 114/65
[2017-12-28 16:48] LABS: BASOPHILS 0.6 % (0-2); EOSINOPHILS 3.4 % (0-7); HEMATOCRIT 38.6 % (36.0-48.0); HEMOGLOBIN 12.5 g/dL (12-16); IMMATURE GRANULOCYTES 0.2 % (0-5); LYMPHOCYTES 38.3 % (15-50); MCH 28.1 pg (26.0-34.0); MCHC 32.4 g/dL (31.0-37.0); MCV 86.7 fL (80.0-100.0); MEAN PLATELET VOLUME 10.2 fL (7.4-10.4); MONOCYTES 9.8 % (2-11); NEUTROPHILS 47.7 % (40-80); PLATELET COUNT 226 10x3/uL (130-400); RBC 4.45 10x6/uL (4.00-5.40); RDW 12.7 % (11.5-14.5); WBC 9.9 10x3/uL (4.8-10.8)
[2017-12-28 17:05] LABS: CALC OSMOLALITY 275 mosm/kg (275-300); CALCIUM 8.4 mg/dL (8.5-10.1); CARBON DIOXIDE 27.7 mmol/L (21.0-32.0); CHLORIDE - SERUM 101 mmol/L (98-107); CREATININE - SERUM 0.8 mg/dL (0.6-1.3); GLUCOSE 195 mg/dL (74-106); SODIUM 135 mmol/L (136-145); UREA NITROGEN 14 mg/dL (7-18); eGFR NON AFRICAN AMERICAN 75 mL/min (90-120)
[2017-12-28] MEDS ORDERED: ASPIRIN325 MG PO (17:15)
[2017-12-28] MEDS ORDERED: COREG6.25 MG PO (17:18)
[2017-12-28] MEDS ORDERED: PLAVIX75 MG PO (17:18)
== END 2017-12-28 20:29 | disposition home or self-care (01) | DRG 247 ==
LOC: OBSVTIME 18:08 → D.M2 18:08
PROVIDERS: Internal Medicine Interventional Cardiology; Internal Medicine Nephrology
PROC: 4A023N7 Measurement of Cardiac Sampling and Pressure, Left Heart, Percutaneous Approach (ICD-10-PCS; 2017-12-27)
PROC: B2111ZZ Fluoroscopy of Multiple Coronary Arteries using Low Osmolar Contrast (ICD-10-PCS; 2017-12-27)
PROC: B2151ZZ Fluoroscopy of Left Heart using Low Osmolar Contrast (ICD-10-PCS; 2017-12-27)
PROC: 027034Z Dilation of Coronary Artery, One Artery with Drug-eluting Intraluminal Device, Percutaneous Approach (ICD-10-PCS; principal; 2017-12-27 09:45)
PROC: 027034Z Dilation of Coronary Artery, One Artery with Drug-eluting Intraluminal Device, Percutaneous Approach (ICD-10-PCS; 2017-12-28)
DX: I21.4 Non-ST elevation (NSTEMI) myocardial infarction (principal); I10 Essential (primary) hypertension; E78.5 Hyperlipidemia, unspecified; I25.10 Atherosclerotic heart disease of native coronary artery without angina pectoris; E11.65 Type 2 diabetes mellitus with hyperglycemia; Z79.4 Long term (current) use of insulin